=== PATIENT | female | born 1970 | race Caucasian/White ===

== ENCOUNTER 2018-01-27 16:30 | Inpatient (IN) | payer OTHER ==
[2018-01-27] MEDS ORDERED: SODIUM CHLORIDE 0.9% 1,000 ML IV STA (16:55)
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
--- NOTE | 2018-01-27 17:30 | XR ---
EXAMINATION TYPE: XR KUB DATE OF EXAM: 01/27/2018 COMPARISON: NONE HISTORY: Flank pain TECHNIQUE: 2 views FINDINGS: 2 upright views show no sign of intestinal obstruction or pneumoperitoneum. Fecal pattern i s normal. There are no pathologic calcifications over the kidneys. Lung bases are clear of consolidat ion. IMPRESSION: Nonacute abdomen.
[2018-01-27 17:57] LABS: Basophils % (A) 1 %; Eosinophils # (A) 0.1 k/uL (0-0.7); Eosinophils % (A) 2 %; HCT 35.3 % (34.0-46.0); HGB 11.7 gm/dL (11.4-16.0); Lymphocytes # (A) 0.9 k/uL (1.0-4.8); Lymphocytes % (A) 30 %; MCH 35.5 pg (25.0-35.0); MCHC 33.2 g/dL (31.0-37.0); MCV 106.8 fL (80.0-100.0); Macrocytosis Marked; Mean Platelet Volume 8.1; Monocytes # (A) 0.2 k/uL (0-1.0); Monocytes % (A) 8 %; Neutrophils # (A) 1.7 k/uL (1.3-7.7); Neutrophils % (A) 57 %; Platelet Count 222 k/uL (150-450); RBC 3.31 m/uL (3.80-5.40); RDW 15.8 % (11.5-15.5)
[2018-01-27 18:06] LABS: ALT 61 U/L (9-52); AST 83 U/L (14-36); Albumin 3.4 g/dL (3.5-5.0); Alkaline Phosphatase 143 U/L (38-126); Amylase 101 U/L (30-110); Anion Gap 16 mmol/L; Blood Urea Nitrogen 6 mg/dL (7-17); Calcium 8.2 mg/dL (8.4-10.2); Carbon Dioxide 24 mmol/L (22-30); Chloride 111 mmol/L (98-107); Glucose 71 mg/dL (74-99); Lipase 356 U/L (23-300); Potassium 3.7 mmol/L (3.5-5.1); Sodium 151 mmol/L (137-145); Total Bilirubin 0.3 mg/dL (0.2-1.3); Total Protein 5.5 g/dL (6.3-8.2)
[2018-01-27 19:04] LABS: Appearance,Urine Cloudy (Clear); Bilirubin,Urine Negative (Negative); Blood,Urine Negative (Negative); Color,Urine Yellow; Glucose,Urine (UA) Negative (Negative); Ketones,Urine Trace (Negative); Leukocyte Esterase,Urine Negative (Negative); Mucus,Urine Many /hpf; Nitrite,Urine Negative (Negative); PH, Urine 5.5 (5.0-8.0); Protein,Urine Trace (Negative); Specific Gravity,Urine 1.016 (1.001-1.035); WBC,Urine 93 /hpf (0-5)
[2018-01-27] MEDS ORDERED: cefTRIAXone 2,000 MG in SODIUM CHLORIDE 0.9% 100 ML IVPB STA (19:23)
[2018-01-27] MEDS ORDERED: cefTRIAXone IN SWFI 2,000 MG/20 ML SYRINGE IVP STA (19:26)
[2018-01-27] MEDS ORDERED: SODIUM CHLORIDE 0.9% 1,000 ML with MVI, ADULT NO.4 WITH VIT K 10 ML, THIAMINE 100 MG, F... IV ONE ×4 (19:45)
--- NOTE | 2018-01-27 19:53 | US ---
EXAMINATION TYPE: US abdomen limited DATE OF EXAM: 01/27/2018 COMPARISON: NONE CLINICAL HISTORY: Pain. Pain and elevated liver enzymes. EXAM MEASUREMENTS: Liver Length: 18.2 cm Gallbladder Wall: 0.2 cm CBD: 0.5 cm Right Kidney: 9.9 x 4.6 x 4.6 cm Pancreas: Tail obscured by overlying bowel gas Liver: Increased attenuation Gallbladder: No stones seen Evidence for sonographic Mcdowell's sign: No CBD: wnl Right Kidney: No hydronephrosis or masses seen IMPRESSION: Negative right upper quadrant abdominal sonogram. No gallstones or dilated ducts.
[2018-01-27] MEDS ORDERED: LORazepam 2 MG/ML INJ IV PRN (20:04)
[2018-01-27] MEDS ORDERED: NALOXONE 0.4 MG/ML 1 ML VIAL IV PRN ×2 (20:05→21:45)
[2018-01-27] MEDS ORDERED: ASPIRIN 325 MG TAB PO PRN (21:43)
[2018-01-27] MEDS ORDERED: ONDANSETRON 4 MG/2 ML VIAL IVP PRN (21:45)
[2018-01-27] MEDS: LORazepam 2 MG/ML INJ IV PRN ×2 (22:00→23:49)
[2018-01-27] MEDS: traMADol 50 MG TAB PO PRN (22:05)
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
--- NOTE | 2018-01-27 22:54 | CT ---
EXAMINATION TYPE: CT abdomen pelvis wo con DATE OF EXAM: 01/27/2018 COMPARISON: NONE HISTORY: Pyelonephritis. CT DLP: 759 mGycm Automated exposure control for dose reduction was used. TECHNIQUE: Helical acquisition of images was performed from the lung bases through the pelvis. FINDINGS: Lung bases are clear. There is no pleural effusion. Heart size is normal. There is low-attenuation throughout the liver consistent with fatty infiltration. Gallbladder appears normal. Bile ducts are not dilated. Spleen and pancreas appear normal. There is no adrenal mass. Kidneys show normal size and contour. There is no hydronephrosis. There is no retroperitoneal adenopathy. Abdominal aorta shows mild atheromatous change. Ureters are not dilate d. Bladder distends smoothly. There is no evidence of a pelvic mass. Uterus is anteverted. I see no i ntestinal wall thickening. There are no dilated loops. Appendix appears normal. There is some spondyl osis at L4-5 L5-S1. There is no compression fracture. IMPRESSION: FATTY INFILTRATION OF THE LIVER. NO EVIDENCE OF RENAL STONE OR OBSTRUCTION. KIDNEYS HAVE NORMAL SIZE. NO EVIDENCE OF RENAL ATROPHY. NO SIGN OF ACUTE ABDOMEN AND PELVIS.
[2018-01-27] MEDS: SERTRALINE 50 MG TAB PO SCH (23:16)
[2018-01-28] MEDS: NICOTINE 14MG/24HR PATCH TRANSDERM SCH ×2 (00:31→07:59)
[2018-01-28] MEDS: LORazepam 2 MG/ML INJ IV PRN ×7 (04:38→22:31)
[2018-01-28] MEDS: traMADol 50 MG TAB PO PRN (04:40)
[2018-01-28] MEDS: SODIUM CHLORIDE 0.9% 1,000 ML IV SCH ×3 (06:48→18:31)
[2018-01-28] MEDS: cefTRIAXone IN SWFI 2,000 MG/20 ML SYRINGE IVP SCH (07:58)
[2018-01-28 09:36] LABS: ALT 60 U/L (9-52); AST 83 U/L (14-36); Albumin 3.6 g/dL (3.5-5.0); Alkaline Phosphatase 158 U/L (38-126); Anion Gap 14 mmol/L; Blood Urea Nitrogen 7 mg/dL (7-17); Calcium 8.5 mg/dL (8.4-10.2); Carbon Dioxide 25 mmol/L (22-30); Chloride 102 mmol/L (98-107); Glucose 96 mg/dL (74-99); Sodium 141 mmol/L (137-145); Total Bilirubin 0.7 mg/dL (0.2-1.3); Total Protein 5.9 g/dL (6.3-8.2)
[2018-01-28 09:47] LABS: Basophils % (A) 1 %; Eosinophils # (A) 0.1 k/uL (0-0.7); Eosinophils % (A) 1 %; HCT 35.1 % (34.0-46.0); HGB 11.9 gm/dL (11.4-16.0); Lymphocytes # (A) 0.8 k/uL (1.0-4.8); Lymphocytes % (A) 17 %; MCH 36.2 pg (25.0-35.0); MCV 106.6 fL (80.0-100.0); Macrocytosis Marked; Mean Platelet Volume 8.2; Monocytes # (A) 0.2 k/uL (0-1.0); Monocytes % (A) 5 %; Neutrophils # (A) 3.5 k/uL (1.3-7.7); Neutrophils % (A) 77 %; Platelet Count 205 k/uL (150-450); RBC 3.29 m/uL (3.80-5.40); RDW 15.8 % (11.5-15.5); WBC 4.5 k/uL (3.8-10.6)
[2018-01-28 10:41] LABS: Poikilocytosis (M) Present
--- NOTE | 2018-01-28 10:53 | P.PN ---
Subjective Progress Note Date: 01/28/18 Patient complaining of bilateral flank pain right worse than left, denies any nausea or vomiting, does report feeling jittery does have a history of chronic alcoholism and has had withdrawal seizure several years ago. Apparently patient was planning to seek alcohol treatment at [facility] but apparently failed outpatient treatment to [facility]. Objective - Vital Signs Vital signs: Vital Signs Temp 98.4 F 01/28/18 05:20 Pulse 103 H 01/28/18 05:20 Resp 16 01/28/18 05:20 BP 114/73 01/28/18 05:20 Pulse Ox 93 L 01/28/18 05:20 Intake & Output 01/27/18 01/28/18 01/28/18 18:59 06:59 18:59 Intake Total 1600 Balance 1600 Weight 58.06 kg 64.41 kg Intake: Oral 1600 Other: Voiding Method Toilet # Voids 1 # Bowel Movements 0 - Exam Constitutional: No acute distress, conversant, anxious and jittery Eyes: Anicteric sclerae, moist conjunctiva, no lid-lag, PERRLA ENMT: NC/AT,Oropharynx clear, no erythema, exudates Neck:Supple, FROM, no masses, or JVD, No carotid bruits; No thyromegaly Lungs: Clear to auscultation, Clear to percussion, Normal respiratory effort, no accessory muscle use Cardiovascular: Heart regular in rate and rhythm, No murmurs, gallops, or rubs no peripheral edema Abdominal: Soft Nontender, nom distended, no guarding, no rebound or rigidity, Normoactive bowel sounds No hepatomegaly, No splenomegaly, No palpable mass No abdominal wall hernia noted Skin: Normal temperature, tone, texture, turgor, No induration No subcutaneous nodules, No rash, lesions, No ulcers Extremities:No digital cyanosis No clubbing, Pedal pulses intact and symmetrical Radial pulses intact and symmetrical Normal gait and station, No calf tenderness, bilateral CVA tenderness right greater than left Psychiatric: Alert and oriented to person, place and time, Appropriate affect Intact judgement Neuro: Muscles Strength 5/5 in all 4 extremities, Sensation to light touch grossly present throughout, Cranial nerves II-XII grossly intact. No focal sensory deficits - Labs CBC & Chem 7: 01/28/18 08:52 01/28/18 08:52 Labs: Abnormal Lab Results - Last 24 Hours (Table) 01/27/18 01/27/18 01/27/18 Range/Units 17:50 17:50 18:54 WBC 3.0 L (3.8-10.6) k/uL RBC 3.31 L (3.80-5.40) m/uL MCV 106.8 H (80.0-100.0) fL MCH 35.5 H (25.0-35.0) pg RDW 15.8 H (11.5-15.5) % Lymphocytes # 0.9 L (1.0-4.8) k/uL Sodium 151 H (137-145) mmol/L Chloride 111 H (98-107) mmol/L BUN 6 L (7-17) mg/dL Glucose 71 L (74-99) mg/dL Calcium 8.2 L (8.4-10.2) mg/dL AST 83 H (14-36) U/L ALT 61 H (9-52) U/L Alkaline Phosphatase 143 H (38-126) U/L Total Protein 5.5 L (6.3-8.2) g/dL Albumin 3.4 L (3.5-5.0) g/dL Lipase 356 H (23-300) U/L Urine Appearance Cloudy H (Clear) Urine Protein Trace H (Negative) Urine Ketones Trace H (Negative) Urine WBC 93 H (0-5) /hpf Urine WBC Clumps Many H (None) /hpf Urine Mucus Many H (None) /hpf 01/28/18 01/28/18 Range/Units 08:52 08:52 WBC (3.8-10.6) k/uL RBC 3.29 L (3.80-5.40) m/uL MCV 106.6 H (80.0-100.0) fL MCH 36.2 H (25.0-35.0) pg RDW 15.8 H (11.5-15.5) % Lymphocytes # (1.0-4.8) k/uL Sodium (137-145) mmol/L Chloride (98-107) mmol/L BUN (7-17) mg/dL Glucose (74-99) mg/dL Calcium (8.4-10.2) mg/dL AST 83 H (14-36) U/L ALT 60 H (9-52) U/L Alkaline Phosphatase 158 H (38-126) U/L Total Protein 5.9 L (6.3-8.2) g/dL Albumin (3.5-5.0) g/dL Lipase (23-300) U/L Urine Appearance (Clear) Urine Protein (Negative) Urine Ketones (Negative) Urine WBC (0-5) /hpf Urine WBC Clumps (None) /hpf Urine Mucus (None) /hpf Microbiology - Last 24 Hours (Table) 01/27/18 18:54 Urine Culture - Preliminary Urine,Clean Catch Assessment and Plan (1) Pyelonephritis Narrative/Plan: * Patient with pyelonephritis that failed outpatient therapy with Keflex, afebrile leukocytosis not septic * Urine culture pending, CT abdomen and pelvis negative for pyelonephritis * Continue with Rocephin and supportive management with Toradol for pain and Zofran for nausea Current Visit: Yes Status: Acute Code(s): N12 - TUBULO-INTERSTITIAL NEPHRITIS, NOT SPCF ACUTE OR CHRONIC SNOMED Code(s): 46633107 (2) Alcohol dependence with withdrawal Narrative/Plan: * Continuous symptom triggered CIWA withdrawal protocol with when necessary Ativan as needed * Initiate Librium 50 mg by mouth every 8 Current Visit: Yes Status: Acute Code(s): F10.239 - ALCOHOL DEPENDENCE WITH WITHDRAWAL, UNSPECIFIED SNOMED Code(s): 84735690 (3) Hypernatremia Narrative/Plan: * Secondary to dehydration now resolved Current Visit: Yes Status: Acute Code(s): E87.0 - HYPEROSMOLALITY AND HYPERNATREMIA SNOMED Code(s): 64727538 (4) Transaminitis Narrative/Plan: * Right upper quadrant ultrasound negative for any sedation of hepatobiliary disease * Likely secondary to ongoing alcohol use * We will check hepatitis panel Current Visit: Yes Status: Acute Code(s): R74.0 - NONSPEC ELEV OF LEVELS OF TRANSAMNS & LACTIC ACID DEHYDRGNSE SNOMED Code(s): 531855833 Plan: Disposition await further urine cultures and sensitivities continue management alcohol withdrawal it's a discharge in the next 1-2 days
[2018-01-28] MEDS: KETOROLAC 30 MG/ML 1 ML VIAL IVP SCH ×3 (11:45→22:31)
[2018-01-28] MEDS: chlordiazePOXIDE 25 MG CAP PO SCH ×3 (12:18→21:51)
[2018-01-28] MEDS: SERTRALINE 50 MG TAB PO SCH (20:26)
[2018-01-28 20:50] LABS: Hepatitis A Antibody IgM Equivocal (Non-Reactive); Hepatitis B Core IgM Non-Reactive (Non-Reactive)
[2018-01-29] MEDS: LORazepam 2 MG/ML INJ IV PRN ×11 (01:43→22:10)
[2018-01-29] MEDS: SODIUM CHLORIDE 0.9% 1,000 ML IV SCH ×3 (05:12→17:57)
[2018-01-29] MEDS: KETOROLAC 30 MG/ML 1 ML VIAL IVP SCH ×3 (06:15→17:39)
[2018-01-29] MEDS: traMADol 50 MG TAB PO PRN ×4 (08:35→22:12)
[2018-01-29] MEDS: chlordiazePOXIDE 25 MG CAP PO SCH ×3 (08:35→20:34)
[2018-01-29] MEDS: cefTRIAXone IN SWFI 2,000 MG/20 ML SYRINGE IVP SCH (08:37)
[2018-01-29] MEDS: NICOTINE 14MG/24HR PATCH TRANSDERM SCH (08:37)
[2018-01-29] MEDS: ACETAMINOPHEN TAB 325 MG TAB PO PRN ×2 (08:46→17:40)
[2018-01-29 08:49] LABS: ALT 56 U/L (9-52); AST 97 U/L (14-36); Albumin 3.6 g/dL (3.5-5.0); Alkaline Phosphatase 135 U/L (38-126); Anion Gap 10 mmol/L; Blood Urea Nitrogen 5 mg/dL (7-17); Calcium 8.8 mg/dL (8.4-10.2); Carbon Dioxide 26 mmol/L (22-30); Chloride 105 mmol/L (98-107); Glucose 77 mg/dL (74-99); Sodium 141 mmol/L (137-145); Total Bilirubin 0.7 mg/dL (0.2-1.3); Total Protein 5.8 g/dL (6.3-8.2)
--- NOTE | 2018-01-29 11:45 | P.PN ---
Subjective Progress Note Date: 01/29/18 Patient seen in follow-up today she is dressed sitting in the chair and wanting to be discharged, so that she can check and to [facility] to obtain alcohol rehab. Explained to the patient that we are waiting on urine cultures to determine appropriate antibiotic for treatment of her pyelonephritis. The patient was initially still reluctant to stay after discussing the plan of care with myself and nursing staff the patient has opted to remain inpatient for at least 1 more night. Patient denies feeling fidgety or shaky, blood pressure has been slightly elevated but her heart rate has been normal, receiving ongoing Ativan intermittently her CIWA protocol. No significant acute events overnight Objective - Vital Signs Vital signs: Vital Signs Temp 98.4 F 01/29/18 07:00 Pulse 76 01/29/18 07:00 Resp 18 01/29/18 07:00 BP 156/97 01/29/18 07:00 Pulse Ox 97 01/29/18 07:00 Intake & Output 01/28/18 01/29/18 01/29/18 18:59 06:59 18:59 Other: Voiding Method Toilet Toilet Toilet # Voids 3 2 # Bowel Movements 1 - Exam Constitutional: No acute distress, conversant, slightly anxious Eyes: Anicteric sclerae, moist conjunctiva, no lid-lag, PERRLA ENMT: NC/AT,Oropharynx clear, no erythema, exudates Neck:Supple, FROM, no masses, or JVD, No carotid bruits; No thyromegaly Lungs: Clear to auscultation, Clear to percussion, Normal respiratory effort, no accessory muscle use Cardiovascular: Heart regular in rate and rhythm, No murmurs, gallops, or rubs no peripheral edema Abdominal: Soft Nontender, nom distended, no guarding, no rebound or rigidity, Normoactive bowel sounds No hepatomegaly, No splenomegaly, No palpable mass No abdominal wall hernia noted Skin: Normal temperature, tone, texture, turgor, No induration No subcutaneous nodules, No rash, lesions, No ulcers Extremities:No digital cyanosis No clubbing, Pedal pulses intact and symmetrical Radial pulses intact and symmetrical Normal gait and station, No calf tenderness, bilateral CVA tenderness right greater than left Psychiatric: Alert and oriented to person, place and time, Appropriate affect Intact judgement Neuro: Muscles Strength 5/5 in all 4 extremities, Sensation to light touch grossly present throughout, Cranial nerves II-XII grossly intact. No focal sensory deficits - Labs CBC & Chem 7: 01/28/18 08:52 01/29/18 07:42 Labs: Abnormal Lab Results - Last 24 Hours (Table) 01/28/18 01/29/18 Range/Units 08:52 07:42 BUN 5 L (7-17) mg/dL AST 97 H (14-36) U/L ALT 56 H (9-52) U/L Alkaline Phosphatase 135 H (38-126) U/L Total Protein 5.8 L (6.3-8.2) g/dL Hepatitis A IgM Ab Equivocal H (Non-Reactive) Microbiology - Last 24 Hours (Table) 01/27/18 20:43 Blood Culture - Preliminary Blood No Growth after 24 hours Assessment and Plan (1) Pyelonephritis Narrative/Plan: * Patient with pyelonephritis that failed outpatient therapy with Keflex, afebrile leukocytosis not septic * Urine culture pending, CT abdomen and pelvis negative for pyelonephritis * Continue with Rocephin and supportive management with Toradol for pain and Zofran for nausea Current Visit: Yes Status: Acute Code(s): N12 - TUBULO-INTERSTITIAL NEPHRITIS, NOT SPCF ACUTE OR CHRONIC SNOMED Code(s): 96307210 (2) Alcohol dependence with withdrawal Narrative/Plan: * Continuous symptom triggered CIWA withdrawal protocol with when necessary Ativan as needed * Initiate Librium 50 mg by mouth every 8 Current Visit: Yes Status: Acute Code(s): F10.239 - ALCOHOL DEPENDENCE WITH WITHDRAWAL, UNSPECIFIED SNOMED Code(s): 71074156 (3) Hypernatremia Narrative/Plan: * Secondary to dehydration now resolved Current Visit: Yes Status: Resolved Code(s): E87.0 - HYPEROSMOLALITY AND HYPERNATREMIA SNOMED Code(s): 93590921 (4) Acute hepatitis A Narrative/Plan: * Transaminitis trending up slightly * Continue supportive management with IV fluids * Superimposed on ongoing alcoholism and chronic hep C Current Visit: Yes Status: Acute Code(s): B15.9 - HEPATITIS A WITHOUT HEPATIC COMA SNOMED Code(s): 57535892 (5) Transaminitis Narrative/Plan: * Right upper quadrant ultrasound negative for any sedation of hepatobiliary disease * Likely secondary to ongoing alcohol use superimposed on acute hepatitis a and chronic hep C * Increasing nominally continue to monitor Current Visit: Yes Status: Acute Code(s): R74.0 - NONSPEC ELEV OF LEVELS OF TRANSAMNS & LACTIC ACID DEHYDRGNSE SNOMED Code(s): 855002992
[2018-01-29] MEDS: THIAMINE 100 MG/ML 2 ML VIAL IVP SCH (13:06)
[2018-01-29] MEDS: SERTRALINE 50 MG TAB PO SCH (20:33)
[2018-01-29] MEDS ORDERED: LORazepam 2 MG/ML INJ IV STA (23:17)
--- NOTE | 2018-01-29 23:24 | P.PN ---
Progress Note - Text Progress Note Date: 01/29/18 Hospitalist Interval Note Called to see patient regarding CIWA of 21 Patient seen and examined at bedside. Patient visibly tremulous. She is alert to here, date, and that she is in the hospital. She does go off on a tangent talking about seeing people look like a mix between her girlfriend and mother. She reports nausea, headache, diaphoresis, and anxiety. She is able to follow simple commands. Vital signs reviewed General: [non toxic], mild distress, [appears at stated age] Cardiovascular: [S1S2 reg], [no murmur], [positive posterior tibial pulse bilateral], Lungs: [CTA bilateral], [no rhonchi, no rales] , [no accessory muscle use] Abdominal: [soft], [ nontender to palpation], [no guarding], [no appreciable organomegaly] Ext: [no gross muscle atrophy], [no edema], [no contractures] Neuro: [ CN II-XI grossly intact], [no focal neuro deficits], resting tremor Psych: [Alert], [oriented], anxious Assessment/Plan: Alcohol withdrawal with worsening CIWA score -Patient's vital signs were within normal limits with heart rate of 61 and an blood pressure systolic of 138. She does not need ICU at this point in time but will be transferred to the selective care unit. Give Ativan 2 mg 1 now and then continue CIWA protocol and librium, patient did have a gap in administration of ativan hopefully the 2mg will correct this. If she has worsening hallucinations, tachycardia, or increasing blood pressure could consider transfer to ICU.
[2018-01-30] MEDS: SODIUM CHLORIDE 0.9% 1,000 ML IV SCH ×3 (00:57→20:05)
[2018-01-30] MEDS: KETOROLAC 30 MG/ML 1 ML VIAL IVP SCH ×5 (01:05→23:08)
[2018-01-30] MEDS: NICOTINE 14MG/24HR PATCH TRANSDERM SCH (10:09)
[2018-01-30] MEDS: THIAMINE 100 MG/ML 2 ML VIAL IVP SCH (10:31)
[2018-01-30] MEDS: cefTRIAXone IN SWFI 2,000 MG/20 ML SYRINGE IVP SCH (11:00)
[2018-01-30] MEDS: LORazepam 2 MG/ML INJ IV PRN ×2 (11:11→21:27)
[2018-01-30] MEDS: chlordiazePOXIDE 25 MG CAP PO SCH ×3 (11:20→21:21)
--- NOTE | 2018-01-30 16:31 | P.PN ---
Subjective Progress Note Date: 01/30/18 Principal diagnosis: Patient reports that she is feeling much better after additional doses of Ativan last night. Patient stated that she gets jittery anxious tremulous with the withdrawal. She is on 50 mg of Librium 3 times a day along with CIWA protocol. Patient denies fever, chills, cough, phlegm production, nausea, vomiting, chest pain, palpitation and denies stress of the review of system. Nurses reported no other issues with her. Objective - Vital Signs Vital signs: Vital Signs Temp 97 F L 01/30/18 08:00 Pulse 52 L 01/30/18 12:00 Resp 18 01/30/18 12:00 BP 107/61 01/30/18 12:00 Pulse Ox 100 01/30/18 12:00 Intake & Output 01/29/18 01/30/18 01/30/18 18:59 06:59 18:59 Intake Total 860 1440 Output Total 0 Balance 860 1440 Weight 64.41 kg 66.5 kg Intake: Intake, IV Titration 500 800 Amount Sodium Chloride 0.9% 1, 500 800 000 ml @ 100 mls/hr IV . Q10H [facility] Rx#:[id number] Oral 360 400 Other 240 Output: Urine 0 Other: Voiding Method Toilet Toilet Toilet # Voids 1 3 - Constitutional General appearance: Present: cooperative, no acute distress - EENT Eyes: Present: EOMI, normal appearance - Neck Neck: Present: normal ROM. Absent: lymphadenopathy, rigidity, thyromegaly - Respiratory Respiratory: bilateral: CTA (No wheezes, ronchi or crackles heard.) - Cardiovascular Rhythm: regular Heart sounds: normal: S1, S2 Abnormal Heart Sounds: Absent: systolic murmur, diastolic murmur, rub, S3 Gallop , S4 Gallop, click - Gastrointestinal General gastrointestinal: Present: normal bowel sounds, soft. Absent: distended , rigid, tenderness - Integumentary Integumentary: Present: normal, normal turgor - Neurologic Neurologic: Present: CNII-XII intact, focal deficits - Psychiatric Psychiatric: Present: A&O x's 3, appropriate affect, intact judgment & insight - Labs CBC & Chem 7: 01/28/18 08:52 01/29/18 07:42 Labs: Microbiology - Last 24 Hours (Table) 01/27/18 20:43 Blood Culture - Preliminary Blood No Growth after 48 hours Assessment and Plan (1) Alcohol dependence with withdrawal Current Visit: Yes Status: Acute Priority: High Code(s): F10.239 - ALCOHOL DEPENDENCE WITH WITHDRAWAL, UNSPECIFIED SNOMED Code(s): 09334413 (2) Pyelonephritis Current Visit: Yes Status: Acute Priority: High Code(s): N12 - TUBULO- INTERSTITIAL NEPHRITIS, NOT SPCF ACUTE OR CHRONIC SNOMED Code(s): 01706528 (3) Transaminitis Current Visit: Yes Status: Acute Priority: Medium Code(s): R74.0 - NONSPEC ELEV OF LEVELS OF TRANSAMNS & LACTIC ACID DEHYDRGNSE SNOMED Code(s): 127703656 (4) Hypernatremia Current Visit: Yes Status: Resolved Priority: Medium Code(s): E87.0 - HYPEROSMOLALITY AND HYPERNATREMIA SNOMED Code(s): 51132945 Plan: Patient requested for discharge today as she has to go to specific rehab place for her alcohol detoxification. When asked about whether that this will take her over the weekend patient replied in negative and stated that they will take her Thursday. Patient was counseled that if she goes home and the chances that she can go back on drinking habit. Patient verbalizes understanding and her frigidity of going back to drinking without significant support system. It was recommended for the patient to continue IV antibiotics while in the hospital for her pyelonephritis along with treatment for her call withdrawal while in the hospital and once she is stable medically she can be discharged on Thursday and transferred to the inpatient alcohol rehab unit. Patient verbalizes understanding and we will continue the current management for now. If patient urine cultures grew bacteria that needs to be treated for a longer period of time than her antibiotics will be changed to oral according to the cultures and sensitivity report at the time of discharge. Time with Patient: Less than 30
[2018-01-30] MEDS: traMADol 50 MG TAB PO PRN (20:06)
[2018-01-30] MEDS: SERTRALINE 50 MG TAB PO SCH (21:21)
[2018-01-31] MEDS: LORazepam 2 MG/ML INJ IV PRN ×2 (02:25→13:09)
[2018-01-31] MEDS: SODIUM CHLORIDE 0.9% 1,000 ML IV SCH ×2 (05:37→14:46)
[2018-01-31] MEDS: KETOROLAC 30 MG/ML 1 ML VIAL IVP SCH ×4 (06:16→23:32)
[2018-01-31] MEDS: THIAMINE 100 MG/ML 2 ML VIAL IVP SCH (08:28)
[2018-01-31] MEDS: NICOTINE 14MG/24HR PATCH TRANSDERM SCH (08:28)
[2018-01-31] MEDS: cefTRIAXone IN SWFI 2,000 MG/20 ML SYRINGE IVP SCH (08:28)
[2018-01-31] MEDS: chlordiazePOXIDE 25 MG CAP PO SCH ×3 (08:28→21:36)
[2018-01-31 09:56] LABS: ALT 52 U/L (9-52); AST 47 U/L (14-36); Albumin 3.8 g/dL (3.5-5.0); Alkaline Phosphatase 129 U/L (38-126); Anion Gap 12 mmol/L; Blood Urea Nitrogen 11 mg/dL (7-17); Calcium 9.8 mg/dL (8.4-10.2); Carbon Dioxide 26 mmol/L (22-30); Chloride 106 mmol/L (98-107); Glucose 92 mg/dL (74-99); Sodium 144 mmol/L (137-145); Total Bilirubin 0.3 mg/dL (0.2-1.3); Total Protein 6.2 g/dL (6.3-8.2)
[2018-01-31] MEDS ORDERED: FOLIC ACID 1 MG TAB PO SCH (12:00)
[2018-01-31] MEDS ORDERED: THIAMINE 100 MG TAB PO SCH (12:00)
--- NOTE | 2018-01-31 14:46 | P.PN ---
Subjective Progress Note Date: 01/31/18 Principal diagnosis: Patient reports today she is feeling much better and the last time she used as needed Ativan was last night. Patient stated that she still feels jittery and tremulous but a lot better than she was yesterday. Patient is going for volume 3 inpatient alcohol detox and rehabilitation program which will be from tomorrow morning. Patient is being treated with IV Rocephin for possible UTI and pyelonephritis although cultures are negative but clinically she is much improved. She only required one more dose of Rocephin to complete her treatment. Nurses reported no current issues with her. Patient denies chest pain, palpitation, dizziness, R, diaphoresis, nausea, vomiting, fever, chills and denies rest of the review of system. Objective - Vital Signs Vital signs: Vital Signs Temp 96.9 F L 01/31/18 08:00 Pulse 74 01/31/18 12:00 Resp 18 01/31/18 12:00 BP 93/72 01/31/18 12:00 Pulse Ox 99 01/31/18 12:00 Intake & Output 01/30/18 01/31/18 01/31/18 18:59 06:59 18:59 Intake Total 400 20 180 Output Total 2 Balance 398 20 180 Weight 63.9 kg Intake: IV 20 0.9 20 Oral 400 180 Output: Urine 2 Other: Voiding Method Toilet # Voids 1 # Bowel Movements 1 - Constitutional General appearance: Present: cooperative, no acute distress - EENT Eyes: Present: EOMI, normal appearance - Neck Neck: Present: normal ROM. Absent: lymphadenopathy, rigidity, stridor, thyromegaly - Respiratory Respiratory: bilateral: CTA, negative: diminished, dullness, rales, rhonchi, wheezing, prolonged expiration, prolonged inspiration - Cardiovascular Rhythm: regular Heart sounds: normal: S1, S2 Abnormal Heart Sounds: Absent: systolic murmur, diastolic murmur, rub, S3 Gallop , S4 Gallop, click - Gastrointestinal General gastrointestinal: Present: normal bowel sounds, soft - Neurologic Neurologic: Present: CNII-XII intact. Absent: focal deficits - Musculoskeletal Musculoskeletal: Present: gait normal - Psychiatric Psychiatric: Present: A&O x's 3, appropriate affect, intact judgment & insight - Labs CBC & Chem 7: 01/28/18 08:52 01/31/18 09:31 Labs: Abnormal Lab Results - Last 24 Hours (Table) 01/31/18 Range/Units 09:31 AST 47 H (14-36) U/L Alkaline Phosphatase 129 H (38-126) U/L Total Protein 6.2 L (6.3-8.2) g/dL Microbiology - Last 24 Hours (Table) 01/27/18 20:43 Blood Culture - Preliminary Blood No Growth after 72 hours 01/27/18 18:54 Urine Culture - Final Urine,Clean Catch Assessment and Plan (1) Alcohol dependence with withdrawal Current Visit: Yes Status: Acute Priority: High Code(s): F10.239 - ALCOHOL DEPENDENCE WITH WITHDRAWAL, UNSPECIFIED SNOMED Code(s): 93436697 (2) Pyelonephritis Current Visit: Yes Status: Acute Priority: High Code(s): N12 - TUBULO- INTERSTITIAL NEPHRITIS, NOT SPCF ACUTE OR CHRONIC SNOMED Code(s): 77958667 (3) Transaminitis Current Visit: Yes Status: Acute Priority: Medium Code(s): R74.0 - NONSPEC ELEV OF LEVELS OF TRANSAMNS & LACTIC ACID DEHYDRGNSE SNOMED Code(s): 556733691 (4) Hypernatremia Current Visit: Yes Status: Resolved Priority: Medium Code(s): E87.0 - HYPEROSMOLALITY AND HYPERNATREMIA SNOMED Code(s): 78205975 Plan: Patient is progressively improving, will continue her current management for alcohol withdrawal and I will decrease the dose of Librium to 25 mg 3 times daily and monitor her. Patient liver function test slowly improving and she will be converted to oral thiamine and I will add folic acid 1 mg daily. Rest of the management will be continued as it is and possible patient will be discharged tomorrow and from there she will go directly to inpatient alcohol rehab program.
[2018-01-31] MEDS: SERTRALINE 50 MG TAB PO SCH (20:00)
[2018-01-31] MEDS: ACETAMINOPHEN TAB 325 MG TAB PO PRN (20:03)
[2018-02-01] MEDS: SODIUM CHLORIDE 0.9% 1,000 ML IV SCH ×2 (03:14→07:57)
[2018-02-01] MEDS: KETOROLAC 30 MG/ML 1 ML VIAL IVP SCH (07:06)
[2018-02-01 07:54] VITALS: BP 110/80; PULSE 65; RESP 16; TEMP 98
[2018-02-01] MEDS: NICOTINE 14MG/24HR PATCH TRANSDERM SCH (07:56)
[2018-02-01] MEDS: cefTRIAXone IN SWFI 2,000 MG/20 ML SYRINGE IVP SCH (07:57)
[2018-02-01] MEDS: chlordiazePOXIDE 25 MG CAP PO SCH (08:00)
--- NOTE | 2018-02-01 10:42 | P.DS ---
Providers Date of admission: 01/28/18 11:12 Expected date of discharge: 02/01/18 Attending physician: Boris Logan MD Primary care physician: Stated None - Discharge Diagnosis(es) (1) Alcohol dependence with withdrawal Current Visit: Yes Status: Acute Priority: High (2) Pyelonephritis Current Visit: Yes Status: Acute Priority: High Hospital Course: This is a 47-year-old female that comes and was symptoms of pyelonephritis. Patient with fever chills and flank pain. Patient started on Rocephin. Urine and blood cultures are negative. Patient wants to call withdrawals treated with single protocol with Ativan and Librium. This point patient symptoms improving patient will be discharged home. Discharge time 32 minutes Patient Condition at Discharge: Stable Plan - Discharge Summary Discharge Rx Participant: Yes New Discharge Prescriptions: New Amoxic-Pot Clav 875-125Mg [Augmentin 875-125] 1 tab PO Q12HR #10 tablet Continue Aspirin 325 mg PO TID PRN PRN Reason: Pain Prazosin HCl [Minipress] 2 mg PO HS Sertraline HCl [Zoloft] 150 mg PO HS Discontinued Cephalexin [Keflex] 500 mg PO QID No Action traMADol HCL [Ultram] 50 - 100 mg PO Q4HR PRN PRN Reason: Pain Discharge Medication List Aspirin 325 mg PO TID PRN 01/27/18 [History] Prazosin HCl [Minipress] 2 mg PO HS 01/27/18 [History] Sertraline HCl [Zoloft] 150 mg PO HS 01/27/18 [History] traMADol HCL [Ultram] 50 - 100 mg PO Q4HR PRN 01/27/18 [History] Amoxic-Pot Clav 875-125Mg [Augmentin 875-125] 1 tab PO Q12HR #10 tablet [Rx] Follow up Appointment(s)/Referral(s): None,Stated [Primary Care Provider] - 1-2 days () Patient Instructions/Handouts: Urinary Tract Infection in Women (GEN) Activity/Diet/Wound Care/Special Instructions: Pt to make own appointment with Dr. Cohen (PCP) per her request. Discharge Disposition: TRANSFER TO SNF/ECF
== END 2018-02-01 11:33 | disposition designated cancer center or children's hospital (05) | DRG 690 ==
LOC: EC 16:30 → 4MS4W 20:03 → OBSVTOIN 01-28 11:12 → 4MS4W 01-29 17:04 → 6SEL 01-30 00:16
PROVIDERS: ADMIT Internal Medicine; ATTEND Internal Medicine
DX: N12 Tubulo-interstitial nephritis, not specified as acute or chronic (principal); F10.239 Alcohol dependence with withdrawal, unspecified; E87.0 Hyperosmolality and hypernatremia; B15.9 Hepatitis A without hepatic coma; B18.2 Chronic viral hepatitis C; E86.0 Dehydration; R74.0 Nonspecific elevation of levels of transaminase and lactic acid dehydrogenase [LDH]; J45.909 Unspecified asthma, uncomplicated; F90.9 Attention-deficit hyperactivity disorder, unspecified type; F32.9 Major depressive disorder, single episode, unspecified; F43.10 Post-traumatic stress disorder, unspecified; Z79.82 Long term (current) use of aspirin; Z79.899 Other long term (current) drug therapy; Z91.5 Personal history of self-harm; Z88.2 Allergy status to sulfonamides; Z91.013 Allergy to seafood; Z83.3 Family history of diabetes mellitus; Z82.0 Family history of epilepsy and other diseases of the nervous system
CPT/HCPCS: 36415; 74018; 74176; 76705; 80053; 80074; 81001; 81025; 82150; 83690; 85025; 87040; 87086; 96361; 96365; 96375; 99285